=== PATIENT | female | born 1940 | race Caucasian/White ===

== ENCOUNTER → 2017-08-02 | Outpatient (CLI) | payer MEDICARE, OTHER | END | disposition home or self-care (01) | LOC: CARD 14:03 | PROVIDERS: ATTEND Family Medicine | DX: J84.9 Interstitial pulmonary disease, unspecified (principal) | CPT/HCPCS: 94060; 94726; 94729 ==

== ENCOUNTER 2019-01-29 06:52 | Inpatient (IN) | payer MEDICARE ==
[2019-01-27 16:20] LABS: BASOPHILS # (AUTO) 0.03 x10^3/uL (0-0.1); BASOPHILS % (AUTO) 0 % (0-1); EOSINOPHILS # (AUTO) 0.22 x10^3/uL (0-0.4); EOSINOPHILS % (AUTO) 3 % (1-7); LYMPHOCYTES # (AUTO) 1.98 x10^3/uL (1-3.4); LYMPHOCYTES % (AUTO) 29 % (22-44); MD NO; MEAN CORPUSCULAR HEMOGLOBIN 30.9 pg (27.0-34.8); MEAN CORPUSCULAR HGB CONC 33.1 g/dL (32.4-35.8); MEAN CORPUSCULAR VOLUME 93.5 fL (80-100); MEAN PLATELET VOLUME 8.2 fL (7.4-10.4); MONOCYTES # (AUTO) 0.59 x10^3/uL (0.2-0.8); MONOCYTES % (AUTO) 9 % (2-9); NEUTROPHILS % (AUTO) 59 % (42-75); PLATELET COUNT 267 x10^3/uL (130-400); RED CELL DISTRIBUTION WIDTH 13.9 % (9.6-15.2)
[2019-01-27 16:30] LABS: INTERNATIONAL NORMALIZED RATIO 0.98 (0.93-1.1); PROTHROMBIN TIME 10.3 Seconds (9.6-11.5)
[2019-01-27 16:31] LABS: ANION GAP 4 mmol/L (5-15); CALCIUM 9.3 mg/dL (8.5-10.1); CHLORIDE 107 mmol/L (98-107)
[2019-01-27 16:35] LABS: ALANINE AMINOTRANSFERASE 79 U/L (12-78); ALKALINE PHOSPHATASE 62 U/L (45-117); BILIRUBIN,TOTAL 0.8 mg/dL (0.2-1.0); CREATININE 1.05 mg/dL (0.55-1.02); TOTAL PROTEIN 7.8 g/dL (6.4-8.2)
[~2019-01-29] VITALS: Ht 162.6 cm; Wt 76.8 kg
[~2019-01-29 06:52] MED LIST: B CO1TAB14 PO; BENA20TA54 PO; CHOL100012 PO; CYAN-27 PO; MULT-658 PO; OXYB10TA2 PO; gabapentin PO
[2019-01-29] MEDS ORDERED: BUPIVACAINE/PF 0.5% ONE (06:58)
[2019-01-29] MEDS ORDERED: ACETAMINOPHEN 500 MG TABLET PO ONE (07:30)
[2019-01-29] MEDS ORDERED: OXYcodone 5 MG/5 ML ORAL.SOL UDC PO PRN (08:00)
[2019-01-29] MEDS ORDERED: HYDROmorphone 2 MG/ML, 1ML IVPush PRN (08:00)
[2019-01-29] MEDS ORDERED: hydrALAzine 20 MG/ML, 1ML IV PRN (08:00)
[2019-01-29] MEDS ORDERED: EPHEDRINE 50 MG/ML, 1ML IVPush PRN (08:00)
[2019-01-29] MEDS ORDERED: MEPERIDINE/PF 25MG/ML,1ML IVPush PRN (08:00)
[2019-01-29] MEDS ORDERED: ONDANSETRON 2MG/ML, 2ML IV PRN (08:00)
[2019-01-29] MEDS ORDERED: PROMETHAZINE 25 MG/ML, 1ML IV PRN (08:00)
[2019-01-29] MEDS ORDERED: LABETALOL 5MG/ML, 20ML IV PRN (08:00)
[2019-01-29] MEDS: LACTATED RINGERS 1,000 ML IV SCH ×2 (08:16→16:17)
[2019-01-29] MEDS ORDERED: MIDAZOLAM 1 MG/ML, 2ML ONE (08:35)
[2019-01-29] MEDS ORDERED: FENTANYL PF 100 MCG/2ML ONE ×3 (08:35→10:46)
[2019-01-29] MEDS ORDERED: ROCURONIUM 10MG/ML,5ML ONE (08:37)
[2019-01-29] MEDS ORDERED: GLYCOPYRROLATE 0.2MG/1ML, 5ML ONE (08:37)
[2019-01-29] MEDS ORDERED: PROPOFOL 10 MG/ML, 20ML ONE (08:37)
[2019-01-29] MEDS ORDERED: DEXAMETHASONE 4 MG/ML, 1ML ONE (08:37)
[2019-01-29] MEDS ORDERED: SUCCINYLCHOLINE 20 MG/ML, 10ML ONE (08:37)
[2019-01-29] MEDS ORDERED: NEOSTIGMINE 1 MG/ML, 10ML ONE (08:37)
[2019-01-29] MEDS ORDERED: CEFAZOLIN 1,000 MG ONE (08:37)
[2019-01-29] MEDS ORDERED: LIDOCAINE-MPF 2% ,5ML ONE (08:37)
[2019-01-29] MEDS ORDERED: SODIUM CHLORIDE 0.9% PF 10ML ONE (08:37)
[2019-01-29] MEDS ORDERED: ONDANSETRON 2MG/ML, 2ML ONE (08:37)
[2019-01-29] MEDS ORDERED: PHENYLEPHRINE 10 MG/ML ONE (08:46)
[2019-01-29] MEDS ORDERED: KETOROLAC 30 MG/1 ML ONE (09:10)
[2019-01-29] MEDS ORDERED: EPINEPHRINE 1 MG/ML, 1ML INFIL ONE (09:14)
[2019-01-29] MEDS ORDERED: DIPHENHYDRAMINE 25 MG CAPSULE PO PRN (10:30)
[2019-01-29] MEDS ORDERED: FAMOTIDINE 20 MG TABLET PO SCH (10:30)
[2019-01-29] MEDS ORDERED: DIPHENHYDRAMINE 50 MG/ML, 1ML IVPush PRN (10:30)
[2019-01-29] MEDS ORDERED: ENALAPRILAT 1.25 MG/ML, 2ML IVPush PRN (10:30)
[2019-01-29] MEDS ORDERED: KETOROLAC 30 MG/1 ML IVPush PRN (10:30)
[2019-01-29] MEDS ORDERED: hydrALAzine 20 MG/ML, 1ML IVPush PRN (10:30)
[2019-01-29] MEDS ORDERED: FAMOTIDINE 20 MG/2 ML IVPush SCH ×2 (10:30→10:59)
[2019-01-29] MEDS ORDERED: ACETAMINOPHEN 325 MG TABLET PO PRN (10:30)
[2019-01-29] MEDS ORDERED: LORazepam 2 MG/ML, 1ML IVPush PRN (10:30)
[2019-01-29] MEDS ORDERED: LORazepam 0.5MG TABLET PO PRN (10:30)
[2019-01-29] MEDS: FENTANYL PF 100 MCG/2ML IV PRN ×4 (10:48→11:15)
[2019-01-29] MEDS ORDERED: LACTATED RINGERS 1,000 ML IV SCH (10:52)
[2019-01-29] MEDS ORDERED: OXYcodone 5 MG/5 ML ORAL.SOL UDC ONE (11:16)
[2019-01-29] MEDS ORDERED: MEPERIDINE/PF 25MG/ML,1ML ONE (11:22)
[2019-01-29 12:06] VITALS: BP 126/83
[2019-01-29 14:36] VITALS: BP 147/90
[2019-01-29] MEDS: HYDROcodone/APAP 5/325 TABLET PO PRN ×2 (14:54→16:15)
[2019-01-29] MEDS: GABAPENTIN 100 MG CAPSULE PO SCH ×2 (16:15→20:26)
[2019-01-29 18:50] VITALS: BP 155/79
[2019-01-30 02:15] VITALS: BP 137/89
[2019-01-30 04:41] LABS: MEAN CORPUSCULAR HEMOGLOBIN 30.7 pg (27.0-34.8); MEAN CORPUSCULAR HGB CONC 32.5 g/dL (32.4-35.8); MEAN CORPUSCULAR VOLUME 94.3 fL (80-100); MEAN PLATELET VOLUME 8.1 fL (7.4-10.4); PLATELET COUNT 282 x10^3/uL (130-400); RED BLOOD COUNT 4.46 x10^6/uL (3.82-5.3); RED CELL DISTRIBUTION WIDTH 13.9 % (9.6-15.2)
[2019-01-30 04:50] LABS: ANION GAP 8 mmol/L (5-15); CALCIUM 8.5 mg/dL (8.5-10.1); CHLORIDE 106 mmol/L (98-107); CREATININE 1.65 mg/dL (0.55-1.02)
[2019-01-30 05:43] LABS: BASOPHILS # (AUTO) 0.01 x10^3/uL (0-0.1); BASOPHILS % (AUTO) 0 % (0-1); EOSINOPHILS % (AUTO) 0 % (1-7); LYMPHOCYTES # (AUTO) 1.07 x10^3/uL (1-3.4); LYMPHOCYTES % (AUTO) 7 % (22-44); MD SCAN; MONOCYTES # (AUTO) 0.73 x10^3/uL (0.2-0.8); MONOCYTES % (AUTO) 5 % (2-9); NEUTROPHILS # (AUTO) 12.98 x10^3/uL (1.8-6.8); NEUTROPHILS % (AUTO) 88 % (42-75)
[2019-01-30 08:23] VITALS: BP 142/87
[2019-01-30] MEDS ORDERED: ENOXAPARIN 40 MG/0.4 ML SQ SCH (09:00)
[2019-01-30] MEDS: GABAPENTIN 100 MG CAPSULE PO SCH ×3 (09:52→19:51)
[2019-01-30] MEDS: BENAZEPRIL 20 MG TABLET PO SCH (09:53)
[2019-01-30] MEDS: OXYBUTYNIN CHLORIDE 5 MG TABLET PO SCH ×2 (09:53→19:51)
[2019-01-30] MEDS: HYDROcodone/APAP 5/325 TABLET PO PRN ×2 (09:54→16:34)
[2019-01-30] MEDS: FAMOTIDINE 20 MG/2 ML IVPush SCH (09:54)
[2019-01-30] MEDS: ENOXAPARIN 30 MG/0.3 ML SQ SCH (09:55)
[2019-01-30 14:48] VITALS: BP 136/79
[2019-01-30 19:56] VITALS: BP 138/85
[2019-01-30] MEDS ORDERED: ALBUTEROL SULFATE 2.5 MG/3 ML NPPB PRN (23:30)
[2019-01-31 02:15] VITALS: BP 116/73
[2019-01-31 05:12] LABS: BASOPHILS # (AUTO) 0.08 x10^3/uL (0-0.1); BASOPHILS % (AUTO) 1 % (0-1); EOSINOPHILS # (AUTO) 0.07 x10^3/uL (0-0.4); EOSINOPHILS % (AUTO) 1 % (1-7); LYMPHOCYTES # (AUTO) 1.56 x10^3/uL (1-3.4); LYMPHOCYTES % (AUTO) 11 % (22-44); MD NO; MEAN CORPUSCULAR HEMOGLOBIN 31.2 pg (27.0-34.8); MEAN CORPUSCULAR HGB CONC 32.9 g/dL (32.4-35.8); MEAN PLATELET VOLUME 8.3 fL (7.4-10.4); MONOCYTES # (AUTO) 1.42 x10^3/uL (0.2-0.8); MONOCYTES % (AUTO) 10 % (2-9); NEUTROPHILS # (AUTO) 11.13 x10^3/uL (1.8-6.8); NEUTROPHILS % (AUTO) 78 % (42-75); PLATELET COUNT 264 x10^3/uL (130-400); RED BLOOD COUNT 4.21 x10^6/uL (3.82-5.3); RED CELL DISTRIBUTION WIDTH 13.9 % (9.6-15.2)
[2019-01-31 05:27] LABS: ALBUMIN 3.4 g/dL (3.4-5.0); ANION GAP 6 mmol/L (5-15); CALCIUM 8.8 mg/dL (8.5-10.1); CHLORIDE 102 mmol/L (98-107)
[2019-01-31 05:33] LABS: ALANINE AMINOTRANSFERASE 111 U/L (12-78); ALKALINE PHOSPHATASE 48 U/L (45-117); BILIRUBIN,TOTAL 0.7 mg/dL (0.2-1.0); CREATININE 1.27 mg/dL (0.55-1.02); TOTAL PROTEIN 6.6 g/dL (6.4-8.2)
[2019-01-31 07:00] VITALS: BP 131/72
[2019-01-31] MEDS: OXYBUTYNIN CHLORIDE 5 MG TABLET PO SCH ×2 (09:44→21:00)
[2019-01-31] MEDS: GABAPENTIN 100 MG CAPSULE PO SCH ×3 (09:44→21:00)
[2019-01-31] MEDS: BENAZEPRIL 20 MG TABLET PO SCH (09:45)
[2019-01-31] MEDS: ENOXAPARIN 30 MG/0.3 ML SQ SCH (09:45)
[2019-01-31] MEDS: FAMOTIDINE 20 MG/2 ML IVPush SCH (09:45)
[2019-01-31] MEDS ORDERED: LACTULOSE 20 GM/30 ML UDC PO PRN (12:30)
[2019-01-31] MEDS ORDERED: BISACODYL 10 MG SUPP PR PRN (12:30)
[2019-01-31] MEDS: DOCUSATE 50 MG/5 ML, 10ML UDC NG SCH (12:30)
[2019-01-31 13:14] VITALS: BP 164/83
[2019-01-31] MEDS: DOCUSATE 100 MG CAPSULE PO SCH (16:41)
[2019-01-31] MEDS: HYDROcodone/APAP 5/325 TABLET PO PRN (16:47)
[2019-01-31] MEDS ORDERED: HYDR-3240 PO (17:55)
[2019-01-31] MEDS: morphine SULFATE 10 MG/ML, 1ML IVPush PRN ×2 (18:01→21:15)
[2019-01-31] MEDS: SENNA/DOCUSATE TABLET PO SCH (21:00)
[2019-01-31] MEDS ORDERED: SODIUM CHLORIDE 0.9% 1,000ML IVBOLUS ONE (23:00)
[2019-01-31] MEDS ORDERED: ALBUMIN HUMAN 25% 100 ML IV PRN (23:00)
[2019-02-01] MEDS ORDERED: NOREPINEPHRINE 4 MG in SODIUM CHLORIDE 0.9% 246 ML IV PRN (04:00)
[2019-02-01 04:36] VITALS: BP 98/56
[2019-02-01] MEDS: DOCUSATE 50 MG/5 ML, 10ML UDC NG SCH (09:00)
[2019-02-01] MEDS: DOCUSATE 100 MG CAPSULE PO SCH (09:00)
[2019-02-01] MEDS: ENOXAPARIN 40 MG/0.4 ML SQ SCH (09:00)
[2019-02-01] MEDS: BENAZEPRIL 20 MG TABLET PO SCH (09:00)
[2019-02-01] MEDS: OXYBUTYNIN CHLORIDE 5 MG TABLET PO SCH ×2 (09:00→21:22)
[2019-02-01] MEDS: GABAPENTIN 100 MG CAPSULE PO SCH ×3 (09:00→21:25)
[2019-02-01] MEDS: FAMOTIDINE 20 MG/2 ML IVPush SCH (09:29)
[2019-02-01] MEDS ORDERED: SODIUM CHLORIDE 0.9% 1,000 ML IV SCH ×2 (09:30→17:00)
[2019-02-01] MEDS ORDERED: VANCOMYCIN PER PHARMACY MC PRN (09:30)
[2019-02-01] MEDS: PIPERACILLIN/TAZO/PMX 3.375GM 50 ML IV SCH ×3 (09:31→21:57)
[2019-02-01] MEDS ORDERED: PHARMACOKINETIC MONITORING MC PRN (10:00)
[2019-02-01 10:11] LABS: INTERNATIONAL NORMALIZED RATIO 1.14 (0.93-1.1); PROTHROMBIN TIME 11.9 Seconds (9.6-11.5)
[2019-02-01 10:12] LABS: ALBUMIN 3.2 g/dL (3.4-5.0); ANION GAP 7 mmol/L (5-15); CALCIUM 8.2 mg/dL (8.5-10.1); CHLORIDE 105 mmol/L (98-107); CREATININE 0.88 mg/dL (0.55-1.02)
[2019-02-01 10:13] LABS: BASOPHILS # (AUTO) 0.04 x10^3/uL (0-0.1); BASOPHILS % (AUTO) 1 % (0-1); EOSINOPHILS # (AUTO) 0.03 x10^3/uL (0-0.4); EOSINOPHILS % (AUTO) 0 % (1-7); HEMOGRAM NOTE RECHECKED; LYMPHOCYTES # (AUTO) 1.67 x10^3/uL (1-3.4); LYMPHOCYTES % (AUTO) 17 % (22-44); MD NO; MEAN CORPUSCULAR HEMOGLOBIN 31.4 pg (27.0-34.8); MEAN CORPUSCULAR HGB CONC 32.9 g/dL (32.4-35.8); MEAN CORPUSCULAR VOLUME 95.7 fL (80-100); MEAN PLATELET VOLUME 8.4 fL (7.4-10.4); MONOCYTES # (AUTO) 1.14 x10^3/uL (0.2-0.8); MONOCYTES % (AUTO) 12 % (2-9); NEUTROPHILS % (AUTO) 70 % (42-75); PLATELET COUNT 224 x10^3/uL (130-400); RED BLOOD COUNT 3.95 x10^6/uL (3.82-5.3); RED CELL DISTRIBUTION WIDTH 13.4 % (9.6-15.2)
[2019-02-01 10:29] LABS: ALANINE AMINOTRANSFERASE 1403 U/L (12-78); ALKALINE PHOSPHATASE 83 U/L (45-117); BILIRUBIN,TOTAL 1.5 mg/dL (0.2-1.0)
[2019-02-01] MEDS: VANCOMYCIN 1,400 MG in SODIUM CHLORIDE 0.9% 250 ML IV SCH (12:34)
[2019-02-01] MEDS ORDERED: FENTANYL PF 100 MCG/2ML ONE (13:37)
[2019-02-01] MEDS ORDERED: ROCURONIUM 10 MG/ML,10ML IVPush ONE (14:00)
[2019-02-01] MEDS ORDERED: FENTANYL PF 100 MCG/2ML IVPush ONE (14:00)
[2019-02-01] MEDS ORDERED: ETOMIDATE 20 MG/10 ML IVPush ONE (14:00)
[2019-02-01] MEDS: PROPOFOL 100 ML IV PRN ×2 (14:20→20:57)
[2019-02-01] MEDS ORDERED: ETOMIDATE 20 MG/10 ML ONE (15:35)
[2019-02-01] MEDS ORDERED: SUCCINYLCHOLINE 20 MG/ML, 10ML ONE (15:35)
[2019-02-01] MEDS ORDERED: ROCURONIUM 10MG/ML,5ML ONE (15:35)
[2019-02-01] MEDS ORDERED: GLUCAGON 1 MG IM PRN (17:00)
[2019-02-01] MEDS ORDERED: DEXTROSE 50%, 50ML SYRINGE IVPush PRN (17:00)
[2019-02-01] MEDS ORDERED: PHARMACY MAY ADJ FOR RENAL FX MC SCH (17:00)
[2019-02-01] MEDS ORDERED: BISACODYL 10 MG SUPP PR PRN (17:00)
[2019-02-01] MEDS ORDERED: SENNA 176 MG/5 ML ORAL SOL NG PRN (17:00)
[2019-02-01] MEDS ORDERED: FENTANYL PF 100 MCG/2ML IVPush PRN (17:00)
[2019-02-01] MEDS ORDERED: SENNA/DOCUSATE TABLET NG PRN (17:00)
[2019-02-01] MEDS ORDERED: DEXTROSE 4 GM TAB.CHEW PO PRN (17:00)
[2019-02-01] MEDS ORDERED: LIDOCAINE-MPF 1%, 2ML ENDO PRN (17:00)
[2019-02-01 17:58] LABS: MICROSCOPIC NOT IND
[2019-02-01 18:04] LABS: TROPONIN I 0.148 ng/mL (0.000-0.045)
[2019-02-01 18:12] LABS: CULTURE INDICATED? NO
[2019-02-01] MEDS: ALBUTEROL/IPRATROPIUM 2.5MG/0.5MG, 3 ML INLINE SCH ×2 (19:10→21:00)
[2019-02-01] MEDS ORDERED: INSULIN LISPRO 100 UNITS/ML, PEN SQ-INSULIN SCH (21:00)
[2019-02-01] MEDS ORDERED: LACTATED RINGERS 1,000 ML IV SCH (21:00)
[2019-02-01] MEDS: INSULIN LISPRO 100 UNITS/ML, PEN SQ-INSULIN SCH (21:00)
[2019-02-01] MEDS ORDERED: LACTATED RINGERS 500 ML IVBOLUS ONE (21:00)
[2019-02-01] MEDS: SENNA/DOCUSATE TABLET PO SCH (21:22)
[2019-02-01] MEDS: SODIUM CHLORIDE FLUSH 10ML SYR IVF SCH (21:26)
[2019-02-01 23:16] LABS: TROPONIN I 0.276 ng/mL (0.000-0.045)
[2019-02-02] MEDS: INSULIN LISPRO 100 UNITS/ML, PEN SQ-INSULIN SCH ×2 (03:00→09:00)
[2019-02-02] MEDS: ALBUTEROL/IPRATROPIUM 2.5MG/0.5MG, 3 ML INLINE SCH ×6 (03:20→22:44)
[2019-02-02 04:24] VITALS: BP 111/69
[2019-02-02] MEDS: PROPOFOL 100 ML IV PRN ×3 (04:42→16:57)
[2019-02-02] MEDS: PIPERACILLIN/TAZO/PMX 3.375GM 50 ML IV SCH ×4 (04:42→20:36)
[2019-02-02 04:44] LABS: MEAN CORPUSCULAR HEMOGLOBIN 31.5 pg (27.0-34.8); MEAN CORPUSCULAR HGB CONC 32.9 g/dL (32.4-35.8); MEAN CORPUSCULAR VOLUME 95.7 fL (80-100); MEAN PLATELET VOLUME 8.6 fL (7.4-10.4); PLATELET COUNT 225 x10^3/uL (130-400); RED BLOOD COUNT 3.91 x10^6/uL (3.82-5.3); RED CELL DISTRIBUTION WIDTH 14.2 % (9.6-15.2)
[2019-02-02 04:51] LABS: INTERNATIONAL NORMALIZED RATIO 1.21 (0.93-1.1); PROTHROMBIN TIME 12.6 Seconds (9.6-11.5)
[2019-02-02 04:53] LABS: ALBUMIN 2.7 g/dL (3.4-5.0); ANION GAP 10 mmol/L (5-15); CALCIUM 7.9 mg/dL (8.5-10.1); CHLORIDE 106 mmol/L (98-107); CREATININE 1.05 mg/dL (0.55-1.02)
[2019-02-02 05:02] LABS: ALANINE AMINOTRANSFERASE 1242 U/L (12-78); ALKALINE PHOSPHATASE 92 U/L (45-117); BILIRUBIN,TOTAL 1.5 mg/dL (0.2-1.0); TOTAL PROTEIN 5.2 g/dL (6.4-8.2)
[2019-02-02 05:17] LABS: BASOPHILS # (AUTO) 0.01 x10^3/uL (0-0.1); BASOPHILS % (AUTO) 0 % (0-1); EOSINOPHILS # (AUTO) 0.15 x10^3/uL (0-0.4); EOSINOPHILS % (AUTO) 1 % (1-7); LYMPHOCYTES # (AUTO) 1.83 x10^3/uL (1-3.4); LYMPHOCYTES % (AUTO) 14 % (22-44); MD SCAN; MONOCYTES % (AUTO) 8 % (2-9); NEUTROPHILS # (AUTO) 10.07 x10^3/uL (1.8-6.8); NEUTROPHILS % (AUTO) 77 % (42-75)
[2019-02-02] MEDS ORDERED: FENTANYL PF 250 MCG/5ML ONE (07:33)
[2019-02-02] MEDS ORDERED: MIDAZOLAM 1 MG/ML, 2ML ONE (07:33)
[2019-02-02] MEDS ORDERED: BUPIVACAINE/PF 0.5% ONE (07:52)
[2019-02-02] MEDS ORDERED: EPINEPHRINE 1 MG/ML, 1ML ONE (07:53)
[2019-02-02] MEDS: ENOXAPARIN 40 MG/0.4 ML SQ SCH (09:00)
[2019-02-02] MEDS: BENAZEPRIL 20 MG TABLET PO SCH (09:00)
[2019-02-02] MEDS: SODIUM CHLORIDE FLUSH 10ML SYR IVF SCH ×2 (09:00→20:36)
[2019-02-02] MEDS: DOCUSATE 100 MG CAPSULE PO SCH (09:00)
[2019-02-02] MEDS ORDERED: BUPIVACAINE/PF-EPI 0.5% 1:200K INFIL ONE (09:45)
[2019-02-02] MEDS ORDERED: ROCURONIUM 10MG/ML,5ML ONE ×3 (09:52)
[2019-02-02] MEDS ORDERED: DEXAMETHASONE 4 MG/ML, 1ML ONE ×2 (09:52)
[2019-02-02] MEDS: OXYBUTYNIN CHLORIDE 5 MG TABLET PO SCH ×2 (10:59→20:36)
[2019-02-02] MEDS: FAMOTIDINE 20 MG/2 ML IVPush SCH (10:59)
[2019-02-02] MEDS: GABAPENTIN 100 MG CAPSULE PO SCH ×3 (10:59→20:35)
[2019-02-02] MEDS: DOCUSATE 50 MG/5 ML, 10ML UDC NG SCH (10:59)
[2019-02-02] MEDS: LACTATED RINGERS 1,000 ML IV SCH (11:50)
[2019-02-02] MEDS: NOREPINEPHRINE 4 MG in SODIUM CHLORIDE 0.9% 246 ML IV PRN (15:51)
[2019-02-02] MEDS: morphine SULFATE 10 MG/ML, 1ML IVPush PRN (16:12)
[2019-02-02 16:27] LABS: TROPONIN I 0.043 ng/mL (0.000-0.045)
[2019-02-02] MEDS ORDERED: PROPOFOL 10 MG/ML, 50ML ONE (16:38)
[2019-02-02] MEDS ORDERED: PHENYLEPHRINE 10 MG/ML ONE (16:38)
[2019-02-02] MEDS: VANCOMYCIN 1,400 MG in SODIUM CHLORIDE 0.9% 250 ML IV SCH (22:42)
[2019-02-03] MEDS: ALBUTEROL/IPRATROPIUM 2.5MG/0.5MG, 3 ML INLINE SCH ×6 (02:49→22:08)
[2019-02-03] MEDS: PROPOFOL 100 ML IV PRN ×2 (03:33→16:56)
[2019-02-03] MEDS: PIPERACILLIN/TAZO/PMX 3.375GM 50 ML IV SCH ×4 (03:33→20:56)
[2019-02-03 04:15] LABS: MEAN CORPUSCULAR HEMOGLOBIN 31.1 pg (27.0-34.8); MEAN CORPUSCULAR HGB CONC 32.5 g/dL (32.4-35.8); MEAN CORPUSCULAR VOLUME 95.8 fL (80-100); MEAN PLATELET VOLUME 8.3 fL (7.4-10.4); PLATELET COUNT 250 x10^3/uL (130-400); RED BLOOD COUNT 3.92 x10^6/uL (3.82-5.3); RED CELL DISTRIBUTION WIDTH 14.6 % (9.6-15.2)
[2019-02-03 04:25] LABS: INTERNATIONAL NORMALIZED RATIO 1.11 (0.93-1.1); PROTHROMBIN TIME 11.6 Seconds (9.6-11.5)
[2019-02-03 04:31] LABS: ANION GAP 6 mmol/L (5-15); CALCIUM 7.9 mg/dL (8.5-10.1); CHLORIDE 107 mmol/L (98-107); CREATININE 1.24 mg/dL (0.55-1.02)
[2019-02-03 04:39] LABS: MD YES
[2019-02-03 04:41] LABS: ANISOCYTOSIS 1+; BAND#(MANUAL) 0.77 x10^3/uL; BANDS%(MANUAL) 5 % (0-7); LYMPH#(MANUAL) 0.77 x10^3/uL (1-3.4); LYMPHS% (MANUAL) 5 % (22-44); MONOS#(MANUAL) 1.69 x10^3/uL (0.3-2.7); MONOS% (MANUAL) 11 % (2-9); POLYCHROMASIA 1+; REACTIVE LYMPHS # (MANUAL) 0.15 x10^3/uL (0-0); REACTIVE LYMPHS % (MANUAL) 1 % (0-0); SEG#(MANUAL) 12.01 x10^3/uL (1.8-6.8); SEGS% (MANUAL) 78 % (42-75)
[2019-02-03 04:42] LABS: <PLATELET ESTIMATE> ADEQUATE; <PLT MORPHOLOGY> NORMAL PLT MORPH
[2019-02-03 04:51] VITALS: BP 120/70
[2019-02-03] MEDS: LACTATED RINGERS 1,000 ML IV SCH (08:00)
[2019-02-03] MEDS: BENAZEPRIL 20 MG TABLET PO SCH (09:00)
[2019-02-03] MEDS: DOCUSATE 100 MG CAPSULE PO SCH (09:00)
[2019-02-03] MEDS: SODIUM CHLORIDE FLUSH 10ML SYR IVF SCH ×2 (09:00→20:56)
[2019-02-03] MEDS ORDERED: LACTATED RINGERS 500 ML IV ONE (09:30)
[2019-02-03] MEDS: DOCUSATE 50 MG/5 ML, 10ML UDC NG SCH (09:37)
[2019-02-03] MEDS: FAMOTIDINE 20 MG/2 ML IVPush SCH (09:37)
[2019-02-03] MEDS: OXYBUTYNIN CHLORIDE 5 MG TABLET PO SCH ×2 (09:37→20:56)
[2019-02-03] MEDS: HYDROcodone/APAP 5/325 TABLET PO PRN ×2 (09:39→15:47)
[2019-02-03] MEDS: GABAPENTIN 100 MG CAPSULE PO SCH ×3 (09:40→20:56)
[2019-02-03] MEDS: ENOXAPARIN 40 MG/0.4 ML SQ SCH (10:25)
[2019-02-03 10:48] LABS: ALANINE AMINOTRANSFERASE 953 U/L (12-78)
[2019-02-03 10:50] LABS: ALKALINE PHOSPHATASE 85 U/L (45-117)
[2019-02-03] MEDS: NOREPINEPHRINE 4 MG in SODIUM CHLORIDE 0.9% 246 ML IV PRN (13:30)
[2019-02-04] MEDS: ALBUTEROL/IPRATROPIUM 2.5MG/0.5MG, 3 ML INLINE SCH ×3 (02:13→10:47)
[2019-02-04] MEDS: PIPERACILLIN/TAZO/PMX 3.375GM 50 ML IV SCH ×4 (03:38→20:55)
[2019-02-04] MEDS: LACTATED RINGERS 1,000 ML IV SCH (03:39)
[2019-02-04] MEDS: OXYcodone IR 5MG TABLET PO PRN ×2 (04:18→17:04)
[2019-02-04 04:19] LABS: BASOPHILS # (AUTO) 0.04 x10^3/uL (0-0.1); BASOPHILS % (AUTO) 0 % (0-1); EOSINOPHILS # (AUTO) 0.04 x10^3/uL (0-0.4); EOSINOPHILS % (AUTO) 0 % (1-7); LYMPHOCYTES # (AUTO) 1.34 x10^3/uL (1-3.4); LYMPHOCYTES % (AUTO) 12 % (22-44); MD NO; MEAN CORPUSCULAR HEMOGLOBIN 30.4 pg (27.0-34.8); MEAN CORPUSCULAR HGB CONC 32.4 g/dL (32.4-35.8); MEAN CORPUSCULAR VOLUME 93.9 fL (80-100); MEAN PLATELET VOLUME 7.6 fL (7.4-10.4); MONOCYTES # (AUTO) 0.62 x10^3/uL (0.2-0.8); MONOCYTES % (AUTO) 6 % (2-9); NEUTROPHILS # (AUTO) 8.87 x10^3/uL (1.8-6.8); NEUTROPHILS % (AUTO) 81 % (42-75); PLATELET COUNT 252 x10^3/uL (130-400); RED BLOOD COUNT 3.42 x10^6/uL (3.82-5.3); RED CELL DISTRIBUTION WIDTH 14.7 % (9.6-15.2)
[2019-02-04 04:28] LABS: ALANINE AMINOTRANSFERASE 522 U/L (12-78); ANION GAP 3 mmol/L (5-15); CALCIUM 7.7 mg/dL (8.5-10.1); CHLORIDE 110 mmol/L (98-107); CREATININE 1.02 mg/dL (0.55-1.02)
[2019-02-04 04:30] LABS: ALKALINE PHOSPHATASE 66 U/L (45-117); TOTAL PROTEIN 5.1 g/dL (6.4-8.2); TRIGLYCERIDES 125 mg/dL (50-200)
[2019-02-04] MEDS: FAMOTIDINE 20 MG/2 ML IVPush SCH (07:50)
[2019-02-04] MEDS: ENOXAPARIN 40 MG/0.4 ML SQ SCH (07:50)
[2019-02-04] MEDS: DOCUSATE 50 MG/5 ML, 10ML UDC NG SCH (07:50)
[2019-02-04] MEDS: GABAPENTIN 100 MG CAPSULE PO SCH ×3 (07:50→20:53)
[2019-02-04] MEDS: BENAZEPRIL 20 MG TABLET PO SCH (07:51)
[2019-02-04] MEDS: DOCUSATE 100 MG CAPSULE PO SCH (07:51)
[2019-02-04] MEDS: OXYBUTYNIN CHLORIDE 5 MG TABLET PO SCH ×2 (07:51→20:53)
[2019-02-04] MEDS: SODIUM CHLORIDE FLUSH 10ML SYR IVF SCH ×2 (07:51→20:55)
[2019-02-04] MEDS: LACTULOSE 20 GM/30 ML UDC NG PRN (07:59)
[2019-02-04] MEDS ORDERED: DEXMEDETOMIDINE 200 MCG in SODIUM CHLORIDE 0.9% 48 ML IV PRN (09:00)
[2019-02-04] MEDS: VANCOMYCIN 1,400 MG in SODIUM CHLORIDE 0.9% 250 ML IV SCH (12:02)
[2019-02-04] MEDS ORDERED: OLANZAPINE 2.5 MG TABLET PO SCH (13:00)
[2019-02-04] MEDS ORDERED: OLANZAPINE 5 MG TABLET ONE (13:03)
[2019-02-04] MEDS: ALBUMIN HUMAN 25% 100 ML IV SCH ×2 (13:09→14:28)
--- NOTE | 2019-02-04 14:08 | NUR ---
TF GOAL if needed: w/ propofol: PROMOTE @ 55ml/hr off propofol: 60ml/hr
--- NOTE | 2019-02-04 17:27 | NUR ---
REC CONTINUED NPO; swallow precautions sheet posted at bedside Addendum: 02/04/19 at [address] Amended: Links added.
[2019-02-04] MEDS: OLANZAPINE 2.5 MG TABLET PO SCH (20:54)
[2019-02-05] MEDS: LACTATED RINGERS 1,000 ML IV SCH ×2 (01:55→20:44)
[2019-02-05] MEDS: PIPERACILLIN/TAZO/PMX 3.375GM 50 ML IV SCH ×4 (03:30→20:44)
[2019-02-05 07:34] LABS: BASOPHILS # (AUTO) 0.03 x10^3/uL (0-0.1); BASOPHILS % (AUTO) 0 % (0-1); EOSINOPHILS # (AUTO) 0.16 x10^3/uL (0-0.4); EOSINOPHILS % (AUTO) 2 % (1-7); LYMPHOCYTES # (AUTO) 1.39 x10^3/uL (1-3.4); LYMPHOCYTES % (AUTO) 17 % (22-44); MD NO; MEAN CORPUSCULAR HEMOGLOBIN 30.9 pg (27.0-34.8); MEAN CORPUSCULAR HGB CONC 32.8 g/dL (32.4-35.8); MEAN CORPUSCULAR VOLUME 94.2 fL (80-100); MEAN PLATELET VOLUME 7.2 fL (7.4-10.4); MONOCYTES # (AUTO) 0.87 x10^3/uL (0.2-0.8); MONOCYTES % (AUTO) 11 % (2-9); NEUTROPHILS # (AUTO) 5.52 x10^3/uL (1.8-6.8); NEUTROPHILS % (AUTO) 69 % (42-75); PLATELET COUNT 250 x10^3/uL (130-400); RED BLOOD COUNT 3.34 x10^6/uL (3.82-5.3); RED CELL DISTRIBUTION WIDTH 14.1 % (9.6-15.2)
[2019-02-05 07:41] LABS: ALBUMIN 2.4 g/dL (3.4-5.0); ANION GAP 4 mmol/L (5-15); CHLORIDE 113 mmol/L (98-107)
[2019-02-05 07:45] LABS: ALANINE AMINOTRANSFERASE 259 U/L (12-78); ALKALINE PHOSPHATASE 63 U/L (45-117); BILIRUBIN,TOTAL 1.3 mg/dL (0.2-1.0); TOTAL PROTEIN 5.4 g/dL (6.4-8.2)
[2019-02-05] MEDS: OXYcodone IR 5MG TABLET PO PRN ×3 (07:55→20:23)
[2019-02-05] MEDS: SODIUM CHLORIDE FLUSH 10ML SYR IVF SCH ×2 (09:26→20:12)
[2019-02-05] MEDS: FAMOTIDINE 20 MG/2 ML IVPush SCH (09:26)
[2019-02-05] MEDS: DOCUSATE 50 MG/5 ML, 10ML UDC NG SCH (09:27)
[2019-02-05] MEDS: GABAPENTIN 100 MG CAPSULE PO SCH ×3 (09:27→20:12)
[2019-02-05] MEDS: OXYBUTYNIN CHLORIDE 5 MG TABLET PO SCH ×2 (09:27→20:12)
[2019-02-05] MEDS: LACTULOSE 20 GM/30 ML UDC NG PRN (09:27)
[2019-02-05] MEDS: ENOXAPARIN 40 MG/0.4 ML SQ SCH (09:27)
[2019-02-05] MEDS: BENAZEPRIL 20 MG TABLET PO SCH (09:28)
[2019-02-05] MEDS: OLANZAPINE 2.5 MG TABLET PO SCH ×2 (09:28→20:13)
[2019-02-05] MEDS: VANCOMYCIN 1,400 MG in SODIUM CHLORIDE 0.9% 250 ML IV SCH (11:19)
[2019-02-06] MEDS: PIPERACILLIN/TAZO/PMX 3.375GM 50 ML IV SCH ×4 (02:46→21:00)
[2019-02-06] MEDS: SODIUM CHLORIDE FLUSH 10ML SYR IVF SCH ×2 (08:59→21:00)
[2019-02-06] MEDS: DOCUSATE 50 MG/5 ML, 10ML UDC NG SCH (08:59)
[2019-02-06] MEDS: OLANZAPINE 2.5 MG TABLET PO SCH ×2 (08:59→21:00)
[2019-02-06] MEDS: ENOXAPARIN 40 MG/0.4 ML SQ SCH (08:59)
[2019-02-06] MEDS: FAMOTIDINE 20 MG/2 ML IVPush SCH (08:59)
[2019-02-06] MEDS: OXYBUTYNIN CHLORIDE 5 MG TABLET PO SCH ×2 (08:59→21:38)
[2019-02-06] MEDS: BENAZEPRIL 20 MG TABLET PO SCH (09:00)
[2019-02-06] MEDS: GABAPENTIN 100 MG CAPSULE PO SCH ×3 (09:00→21:38)
[2019-02-06] MEDS: VANCOMYCIN 1,400 MG in SODIUM CHLORIDE 0.9% 250 ML IV SCH (10:49)
[2019-02-06] MEDS: OXYcodone IR 5MG TABLET PO PRN (10:52)
[2019-02-06 17:49] VITALS: BP 141/68
[2019-02-06] MEDS: LACTATED RINGERS 1,000 ML IV SCH (18:21)
[2019-02-06 20:00] VITALS: BP 151/82
[2019-02-06] MEDS ORDERED: OLANZAPINE 5 MG TABLET ONE ×2 (21:28→21:33)
[2019-02-07 01:34] VITALS: BP 148/79
[2019-02-07] MEDS: OXYcodone IR 5MG TABLET PO PRN (02:42)
[2019-02-07] MEDS: PIPERACILLIN/TAZO/PMX 3.375GM 50 ML IV SCH ×2 (02:43→09:00)
[2019-02-07 03:15] LABS: MEAN CORPUSCULAR HEMOGLOBIN 31.3 pg (27.0-34.8); MEAN CORPUSCULAR HGB CONC 32.8 g/dL (32.4-35.8); MEAN CORPUSCULAR VOLUME 95.7 fL (80-100); MEAN PLATELET VOLUME 7.3 fL (7.4-10.4); PLATELET COUNT 305 x10^3/uL (130-400); RED BLOOD COUNT 3.48 x10^6/uL (3.82-5.3); RED CELL DISTRIBUTION WIDTH 14.2 % (9.6-15.2)
[2019-02-07 03:20] LABS: ALANINE AMINOTRANSFERASE 133 U/L (12-78); ALBUMIN 2.1 g/dL (3.4-5.0); ANION GAP 3 mmol/L (5-15); CALCIUM 7.8 mg/dL (8.5-10.1); CHLORIDE 110 mmol/L (98-107); CREATININE 0.84 mg/dL (0.55-1.02)
[2019-02-07 03:23] LABS: ALKALINE PHOSPHATASE 65 U/L (45-117); BILIRUBIN,TOTAL 0.6 mg/dL (0.2-1.0); TOTAL PROTEIN 5.2 g/dL (6.4-8.2)
[2019-02-07 03:51] LABS: MD YES
[2019-02-07 03:54] LABS: <PLATELET ESTIMATE> ADEQUATE; <PLT MORPHOLOGY> NORMAL PLT MORPH; ANISOCYTOSIS 1+; BAND#(MANUAL) 0.46 x10^3/uL; BANDS%(MANUAL) 4 % (0-7); EOS#(MANUAL) 0.58 x10^3/uL (0.0-0.4); EOS% (MANUAL) 5 % (1-7); LYMPH#(MANUAL) 2.09 x10^3/uL (1-3.4); LYMPHS% (MANUAL) 18 % (22-44); MONOS#(MANUAL) 0.12 x10^3/uL (0.3-2.7); MONOS% (MANUAL) 1 % (2-9); POLYCHROMASIA 1+; SEG#(MANUAL) 8.35 x10^3/uL (1.8-6.8); SEGS% (MANUAL) 72 % (42-75)
[2019-02-07 06:46] VITALS: BP 132/75
[2019-02-07] MEDS ORDERED: VANCOMYCIN 1,400 MG in SODIUM CHLORIDE 0.9% 250 ML IVPB ONE (12:00)
[2019-02-07] MEDS: OXYBUTYNIN CHLORIDE 5 MG TABLET PO SCH ×2 (12:25→21:33)
[2019-02-07] MEDS: FAMOTIDINE 20 MG/2 ML IVPush SCH (12:25)
[2019-02-07] MEDS: BENAZEPRIL 20 MG TABLET PO SCH (12:25)
[2019-02-07] MEDS: GABAPENTIN 100 MG CAPSULE PO SCH ×3 (12:26→21:34)
[2019-02-07] MEDS: ENOXAPARIN 40 MG/0.4 ML SQ SCH (12:26)
[2019-02-07] MEDS: DOCUSATE 50 MG/5 ML, 10ML UDC NG SCH (12:26)
[2019-02-07] MEDS: OLANZAPINE 2.5 MG TABLET PO SCH ×2 (12:26→21:33)
[2019-02-07] MEDS: SODIUM CHLORIDE FLUSH 10ML SYR IVF SCH ×2 (12:30→21:00)
[2019-02-07 12:32] VITALS: BP 110/69
[2019-02-07] MEDS: LACTATED RINGERS 1,000 ML IV SCH (17:34)
[2019-02-07 19:42] VITALS: BP 126/76
[2019-02-07] MEDS: HYDROcodone/APAP 5/325 TABLET PO PRN (21:33)
[2019-02-08 01:35] VITALS: BP 95/59
[2019-02-08 06:08] LABS: BASOPHILS # (AUTO) 0.05 x10^3/uL (0-0.1); BASOPHILS % (AUTO) 0 % (0-1); EOSINOPHILS # (AUTO) 0.44 x10^3/uL (0-0.4); EOSINOPHILS % (AUTO) 4 % (1-7); LYMPHOCYTES # (AUTO) 1.77 x10^3/uL (1-3.4); LYMPHOCYTES % (AUTO) 14 % (22-44); MD NO; MEAN CORPUSCULAR HGB CONC 32.1 g/dL (32.4-35.8); MEAN CORPUSCULAR VOLUME 96.7 fL (80-100); MEAN PLATELET VOLUME 7.3 fL (7.4-10.4); MONOCYTES # (AUTO) 1.15 x10^3/uL (0.2-0.8); MONOCYTES % (AUTO) 9 % (2-9); NEUTROPHILS # (AUTO) 8.99 x10^3/uL (1.8-6.8); NEUTROPHILS % (AUTO) 73 % (42-75); PLATELET COUNT 312 x10^3/uL (130-400); RED BLOOD COUNT 3.62 x10^6/uL (3.82-5.3)
[2019-02-08 06:16] LABS: CALCIUM 7.9 mg/dL (8.5-10.1); CHLORIDE 110 mmol/L (98-107)
[2019-02-08 06:22] LABS: ALANINE AMINOTRANSFERASE 112 U/L (12-78); ALKALINE PHOSPHATASE 62 U/L (45-117); ANION GAP 6 mmol/L (5-15); BILIRUBIN,TOTAL 0.5 mg/dL (0.2-1.0); CREATININE 0.82 mg/dL (0.55-1.02); TOTAL PROTEIN 5.3 g/dL (6.4-8.2)
[2019-02-08 07:31] VITALS: BP 116/70
[2019-02-08] MEDS: DOCUSATE 50 MG/5 ML, 10ML UDC NG SCH (09:00)
[2019-02-08] MEDS: BENAZEPRIL 20 MG TABLET PO SCH (09:00)
--- NOTE | 2019-02-08 10:23 | NUR ---
PUREED TEXTURE WITH NECTAR THICK LIQUIDS - PICTURE HANGER PLACED SWALLOW PRECAUTION SIGN AT HOB Addendum: 02/08/19 at 1025 by Kayli MAK Amended: Links added.
[2019-02-08 10:42] LABS: CLOSTRIDIUM DIFFICILE ANTIGEN NEGATIVE; CLOSTRIDIUM DIFFICILE TOXIN NEGATIVE (Negative)
[2019-02-08] MEDS: ENOXAPARIN 40 MG/0.4 ML SQ SCH (11:07)
[2019-02-08] MEDS: GABAPENTIN 100 MG CAPSULE PO SCH ×3 (11:08→19:48)
[2019-02-08] MEDS: OLANZAPINE 2.5 MG TABLET PO SCH ×2 (11:08→19:48)
[2019-02-08] MEDS: OXYBUTYNIN CHLORIDE 5 MG TABLET PO SCH ×2 (11:08→19:48)
[2019-02-08] MEDS: FAMOTIDINE 20 MG/2 ML IVPush SCH (11:08)
[2019-02-08] MEDS: SODIUM CHLORIDE FLUSH 10ML SYR IVF SCH ×2 (11:10→21:00)
[2019-02-08] MEDS: LACTATED RINGERS 1,000 ML IV SCH (13:32)
[2019-02-08 13:38] VITALS: BP 113/70
[2019-02-08] MEDS: HYDROcodone/APAP 5/325 TABLET PO PRN (19:48)
[2019-02-08 20:02] VITALS: BP 133/74
[2019-02-09 01:50] VITALS: BP 115/75
[2019-02-09 08:04] VITALS: BP 127/80
[2019-02-09] MEDS: DOCUSATE 50 MG/5 ML, 10ML UDC NG SCH (09:00)
[2019-02-09] MEDS: SODIUM CHLORIDE FLUSH 10ML SYR IVF SCH ×2 (09:00→21:00)
[2019-02-09] MEDS: OLANZAPINE 2.5 MG TABLET PO SCH ×2 (09:00→21:00)
[2019-02-09] MEDS: FAMOTIDINE 20 MG/2 ML IVPush SCH (09:00)
[2019-02-09] MEDS: ENOXAPARIN 40 MG/0.4 ML SQ SCH (09:44)
[2019-02-09] MEDS: OXYBUTYNIN CHLORIDE 5 MG TABLET PO SCH ×2 (09:44→21:14)
[2019-02-09] MEDS: GABAPENTIN 100 MG CAPSULE PO SCH ×3 (09:44→21:14)
[2019-02-09] MEDS: FAMOTIDINE 20 MG TABLET PO SCH (09:44)
[2019-02-09] MEDS: BENAZEPRIL 20 MG TABLET PO SCH (09:44)
[2019-02-09 13:25] VITALS: BP 107/67
[2019-02-09] MEDS: LACTATED RINGERS 1,000 ML IV SCH (14:56)
[2019-02-09 19:18] VITALS: BP 111/76
[2019-02-09] MEDS: HYDROcodone/APAP 5/325 TABLET PO PRN (21:15)
[2019-02-10 01:11] VITALS: BP 129/74
[2019-02-10 06:21] LABS: BASOPHILS # (AUTO) 0.19 x10^3/uL (0-0.1); BASOPHILS % (AUTO) 2 % (0-1); EOSINOPHILS # (AUTO) 0.35 x10^3/uL (0-0.4); EOSINOPHILS % (AUTO) 3 % (1-7); LYMPHOCYTES # (AUTO) 2.26 x10^3/uL (1-3.4); LYMPHOCYTES % (AUTO) 17 % (22-44); MD NO; MEAN CORPUSCULAR HEMOGLOBIN 31.3 pg (27.0-34.8); MEAN CORPUSCULAR HGB CONC 32.8 g/dL (32.4-35.8); MEAN CORPUSCULAR VOLUME 95.2 fL (80-100); MEAN PLATELET VOLUME 7.5 fL (7.4-10.4); MONOCYTES # (AUTO) 1.19 x10^3/uL (0.2-0.8); MONOCYTES % (AUTO) 9 % (2-9); NEUTROPHILS # (AUTO) 8.99 x10^3/uL (1.8-6.8); NEUTROPHILS % (AUTO) 69 % (42-75); PLATELET COUNT 436 x10^3/uL (130-400); RED BLOOD COUNT 3.59 x10^6/uL (3.82-5.3)
[2019-02-10 06:25] LABS: ALANINE AMINOTRANSFERASE 110 U/L (12-78); ALBUMIN 2.6 g/dL (3.4-5.0); ANION GAP 7 mmol/L (5-15); CALCIUM 8.7 mg/dL (8.5-10.1); CHLORIDE 110 mmol/L (98-107); CREATININE 1.01 mg/dL (0.55-1.02)
[2019-02-10 06:27] LABS: ALKALINE PHOSPHATASE 66 U/L (45-117); BILIRUBIN,TOTAL 0.7 mg/dL (0.2-1.0); TOTAL PROTEIN 6.1 g/dL (6.4-8.2)
[2019-02-10 07:10] VITALS: BP 128/79
[2019-02-10] MEDS: OLANZAPINE 2.5 MG TABLET PO SCH ×2 (09:00→21:00)
[2019-02-10] MEDS: GABAPENTIN 100 MG CAPSULE PO SCH ×3 (10:00→21:19)
[2019-02-10] MEDS: BENAZEPRIL 20 MG TABLET PO SCH (10:00)
[2019-02-10] MEDS: FAMOTIDINE 20 MG TABLET PO SCH (10:00)
[2019-02-10] MEDS: DOCUSATE 50 MG/5 ML, 10ML UDC NG SCH (10:01)
[2019-02-10] MEDS: OXYBUTYNIN CHLORIDE 5 MG TABLET PO SCH ×2 (10:01→21:19)
[2019-02-10] MEDS: ENOXAPARIN 40 MG/0.4 ML SQ SCH (10:01)
[2019-02-10] MEDS: SODIUM CHLORIDE FLUSH 10ML SYR IVF SCH ×2 (10:02→21:00)
[2019-02-10 13:27] VITALS: BP 99/57
--- NOTE | 2019-02-10 13:57 | NUR ---
RECOMMEND:REG/THINS up for all meals in chair Addendum: 02/10/19 at 1358 by MEREDITH MAK Amended: Links added.
[2019-02-10 14:00] VITALS: BP 99/57
[2019-02-10] MEDS ORDERED: AZITHROMYCIN 500 MG in SODIUM CHLORIDE 0.9% 250 ML IV SCH (17:00)
[2019-02-10] MEDS ORDERED: CEFTRIAXONE PMX 1GM/50ML 50 ML IV SCH (17:00)
[2019-02-10] MEDS ORDERED: VANCOMYCIN PER PHARMACY MC PRN (17:30)
[2019-02-10] MEDS ORDERED: PHARMACOKINETIC CONSULTATION MC ONE (18:00)
[2019-02-10] MEDS ORDERED: PHARMACOKINETIC MONITORING MC PRN (18:00)
[2019-02-10 19:04] VITALS: BP 99/56
[2019-02-10] MEDS: AMPICILLIN/SULBACTAM 3 GM in SODIUM CHLORIDE 0.9% 100 ML IV SCH (20:53)
[2019-02-10 20:59] VITALS: BP 138/82
[2019-02-10] MEDS: VANCOMYCIN 1,500 MG in SODIUM CHLORIDE 0.9% 250 ML IV SCH (22:40)
[2019-02-11 01:39] VITALS: BP 104/60
[2019-02-11] MEDS: AMPICILLIN/SULBACTAM 3 GM in SODIUM CHLORIDE 0.9% 100 ML IV SCH ×4 (03:24→21:10)
[2019-02-11 05:50] LABS: BASOPHILS # (AUTO) 0.02 x10^3/uL (0-0.1); BASOPHILS % (AUTO) 0 % (0-1); EOSINOPHILS # (AUTO) 0.32 x10^3/uL (0-0.4); EOSINOPHILS % (AUTO) 4 % (1-7); LYMPHOCYTES # (AUTO) 1.42 x10^3/uL (1-3.4); LYMPHOCYTES % (AUTO) 16 % (22-44); MD NO; MEAN CORPUSCULAR HEMOGLOBIN 31.1 pg (27.0-34.8); MEAN CORPUSCULAR HGB CONC 32.5 g/dL (32.4-35.8); MEAN CORPUSCULAR VOLUME 95.7 fL (80-100); MEAN PLATELET VOLUME 7.7 fL (7.4-10.4); MONOCYTES # (AUTO) 0.96 x10^3/uL (0.2-0.8); MONOCYTES % (AUTO) 11 % (2-9); NEUTROPHILS # (AUTO) 6.24 x10^3/uL (1.8-6.8); NEUTROPHILS % (AUTO) 70 % (42-75); PLATELET COUNT 433 x10^3/uL (130-400); RED BLOOD COUNT 3.16 x10^6/uL (3.82-5.3); RED CELL DISTRIBUTION WIDTH 14.3 % (9.6-15.2)
[2019-02-11 05:57] LABS: ALBUMIN 2.3 g/dL (3.4-5.0); ANION GAP 7 mmol/L (5-15); CHLORIDE 113 mmol/L (98-107)
[2019-02-11 06:01] LABS: ALANINE AMINOTRANSFERASE 78 U/L (12-78); ALKALINE PHOSPHATASE 60 U/L (45-117); BILIRUBIN,TOTAL 0.7 mg/dL (0.2-1.0); CREATININE 0.93 mg/dL (0.55-1.02); TOTAL PROTEIN 5.5 g/dL (6.4-8.2)
[2019-02-11] MEDS: FAMOTIDINE 20 MG TABLET PO SCH (08:34)
[2019-02-11] MEDS: OXYBUTYNIN CHLORIDE 5 MG TABLET PO SCH ×2 (08:34→21:10)
[2019-02-11] MEDS: GABAPENTIN 100 MG CAPSULE PO SCH ×3 (08:34→21:10)
[2019-02-11] MEDS: SODIUM CHLORIDE FLUSH 10ML SYR IVF SCH ×2 (08:36→21:11)
[2019-02-11] MEDS: DOCUSATE 50 MG/5 ML, 10ML UDC NG SCH (08:40)
[2019-02-11] MEDS: OLANZAPINE 2.5 MG TABLET PO SCH ×2 (08:40→21:00)
[2019-02-11] MEDS: ENOXAPARIN 40 MG/0.4 ML SQ SCH (08:41)
[2019-02-11 08:42] VITALS: BP 100/63
[2019-02-11] MEDS: BENAZEPRIL 20 MG TABLET PO SCH (09:00)
[2019-02-11 14:54] VITALS: BP 107/60
[2019-02-11] MEDS: VANCOMYCIN 1,500 MG in SODIUM CHLORIDE 0.9% 250 ML IV SCH (18:50)
[2019-02-11 19:55] VITALS: BP 119/75
[2019-02-11] MEDS: HYDROcodone/APAP 5/325 TABLET PO PRN (22:54)
[2019-02-12 02:55] VITALS: BP 123/71
[2019-02-12] MEDS: AMPICILLIN/SULBACTAM 3 GM in SODIUM CHLORIDE 0.9% 100 ML IV SCH ×2 (04:05→09:31)
[2019-02-12 09:00] VITALS: BP 147/84
[2019-02-12] MEDS: ENOXAPARIN 40 MG/0.4 ML SQ SCH (09:31)
[2019-02-12] MEDS: OLANZAPINE 2.5 MG TABLET PO SCH (09:31)
[2019-02-12] MEDS: DOCUSATE 50 MG/5 ML, 10ML UDC NG SCH (09:32)
[2019-02-12] MEDS: BENAZEPRIL 20 MG TABLET PO SCH (09:32)
[2019-02-12] MEDS: FAMOTIDINE 20 MG TABLET PO SCH (09:32)
[2019-02-12] MEDS: GABAPENTIN 100 MG CAPSULE PO SCH (09:32)
[2019-02-12] MEDS: OXYBUTYNIN CHLORIDE 5 MG TABLET PO SCH (09:36)
[2019-02-12] MEDS: SODIUM CHLORIDE FLUSH 10ML SYR IVF SCH (09:36)
[2019-02-12] MEDS ORDERED: DOXYCYCLINE 100MG TABLET PO SCH (11:30)
[2019-02-12] MEDS ORDERED: SENN-177 PO (11:31)
[2019-02-12] MEDS ORDERED: AMOX1TAB12 PO (11:31)
[2019-02-12] MEDS ORDERED: FAMO20TA7 PO (11:31)
[2019-02-12] MEDS ORDERED: DOXY100T23 PO (11:31)
== END 2019-02-12 14:50 | disposition home health service (06) | DRG 163 ==
LOC: ORIP 06:52 → 4NW 10:41 → CCU 01-31 21:04 → CSU 02-02 03:57 → 4NE 02-06 17:43
PROVIDERS: ADMIT Thoracic Surgery (Cardiothoracic Vascular Surgery); ATTEND Internal Medicine
PROC: 0BQT4ZZ Repair Diaphragm, Percutaneous Endoscopic Approach (ICD-10-PCS; principal; 2019-01-29 09:00)
PROC: 0T9B70Z Drainage of Bladder with Drainage Device, Via Natural or Artificial Opening (ICD-10-PCS; 2019-02-01)
PROC: 5A09357 Assistance with Respiratory Ventilation, Less than 24 Consecutive Hours, Continuous Positive Airway Pressure (ICD-10-PCS; 2019-02-01)
PROC: 5A1945Z Respiratory Ventilation, 24-96 Consecutive Hours (ICD-10-PCS; 2019-02-01)
PROC: 0BH17EZ Insertion of Endotracheal Airway into Trachea, Via Natural or Artificial Opening (ICD-10-PCS; 2019-02-01)
PROC: 0B9J7ZX Drainage of Left Lower Lung Lobe, Via Natural or Artificial Opening, Diagnostic (ICD-10-PCS; 2019-02-01)
PROC: 0B9C7ZX Drainage of Right Upper Lung Lobe, Via Natural or Artificial Opening, Diagnostic (ICD-10-PCS; 2019-02-01)
PROC: 0B9D7ZX Drainage of Right Middle Lung Lobe, Via Natural or Artificial Opening, Diagnostic (ICD-10-PCS; 2019-02-01)
PROC: 0B9F7ZX Drainage of Right Lower Lung Lobe, Via Natural or Artificial Opening, Diagnostic (ICD-10-PCS; 2019-02-01)
PROC: 02HV33Z Insertion of Infusion Device into Superior Vena Cava, Percutaneous Approach (ICD-10-PCS; 2019-02-02)
PROC: B548ZZA Ultrasonography of Superior Vena Cava, Guidance (ICD-10-PCS; 2019-02-02)
PROC: 0BQT0ZZ Repair Diaphragm, Open Approach (ICD-10-PCS; 2019-02-02 08:00)
DX: Q79.1 Other congenital malformations of diaphragm (principal); I50.33 Acute on chronic diastolic (congestive) heart failure; J18.9 Pneumonia, unspecified organism; J96.01 Acute respiratory failure with hypoxia; N17.0 Acute kidney failure with tubular necrosis; G93.41 Metabolic encephalopathy; Z99.11 Dependence on respirator [ventilator] status; I10 Essential (primary) hypertension; D63.8 Anemia in other chronic diseases classified elsewhere; E88.09 Other disorders of plasma-protein metabolism, not elsewhere classified; E89.0 Postprocedural hypothyroidism; F17.200 Nicotine dependence, unspecified, uncomplicated; I11.0 Hypertensive heart disease with heart failure; G89.4 Chronic pain syndrome; K44.9 Diaphragmatic hernia without obstruction or gangrene; K76.0 Fatty (change of) liver, not elsewhere classified; R13.10 Dysphagia, unspecified; Z80.9 Family history of malignant neoplasm, unspecified; Z82.3 Family history of stroke; Z83.3 Family history of diabetes mellitus; M19.90 Unspecified osteoarthritis, unspecified site
CPT/HCPCS: 31624; 36415; 36573; 36600; 71045; 71046; 71250; 76700; 80048; 80053; 80202; 81003; 82803; 82962; 83605; 83690; 83735; 84075; 84100; 84450; 84460; 84478; 84484; 85025; 85610; 85730; 86850; 86900; 87040; 87070; 87081; 87102; 87205; 87324; 93005; 93306; 94002; 94003; 94150; 94640; 94660; C1729; G0378; J0171; J0295; J0690; J1100; J1650; J1885; J2250; J2405; J2543; J2704; J2710; J3010; J3370; J7120; J7613; J7620; P9047; C1751; C1781; J0330; J2060; J2175; J2270; J2370; J3490; J7030; J7050; Q0163

== ENCOUNTER → 2019-08-27 | Outpatient (CLI) | payer MEDICARE ==
[~2019-08-27] MED LIST changes: +AMOX1TAB12 PO; +DOXY100T23 PO; +FAMO20TA7 PO; +HYDR-3240 PO; -OXYB10TA2 PO; +OXYB10TA26 PO; +SENN-177 PO
== END | disposition home or self-care (01) ==
LOC: CARD 12:40
PROVIDERS: ATTEND Thoracic Surgery (Cardiothoracic Vascular Surgery)
DX: J90 Pleural effusion, not elsewhere classified (principal)
CPT/HCPCS: 94060; 94726; 94729